=== PATIENT | male | born 1940 | race Caucasian/White ===

== ENCOUNTER 2024-02-20 20:57 | Emergency (ER) | payer MEDICARE, SELFPAY ==
[2024-02-20 21:02] VITALS: BP 152/90
--- NOTE | 2024-02-20 21:31 | ED.SKININJ ---
HPI-Injury
General
Chief Complaint: Ear Problem
Source: patient
Exam Limitations: none
Time Seen by Provider: 02/20/24 21:23
Nursing documentation reviewed up to this point in time: agreed with
Travel History
Have you had any contact with someone who has COVID-19?: No
Do you have any symptoms of coronavirus? Fever > 100 degrees, chills, cough, shortness of breath, sore throat, loss of taste or smell, muscle aches, or headache?: No
History of Present Illness-Injury
Initial Injury comments:
83-year-old male from [place] with no significant past medical history states he woke up this morning and he could not hear anything in both ears. He typically wears hearing aids.
Past History
Past History
ED Past Surgical History: Cholecystectomy
Social History
Tobacco: Non-smoker
Alcohol: None
Personal: Single
Living: assisted living
Employment: Retired
Review of Systems
Review of Systems
Allergies reviewed?: Yes
All Other Systems: ROS reviewed and negative except as documented in HPI and ROS
EENT: Reports other (No ear pain but he cannot hear out of either ear.)
Neurological: Denies headache
Phy Exam
Physical Exam
Physical Exam:
PHYSICAL EXAMINATION:
General: no apparent distress, not acutely ill
Neuro: alert and oriented.
ENT: R ear with white rimmed round FB, L ear with Cerumen impaction
Psychiatric: well kept. interactive and cooperative
Musculoskeletal: Moves with ease
Skin: Warm, pink.
Course
Vital Signs
Initial and Last Documented VS:
Initial Vital Signs
Temp Pulse Resp BP Pulse Ox
97.9 F 60 18 152/90 98
02/20/24 21:02 02/20/24 21:02 02/20/24 21:02 02/20/24 21:02 02/20/24 21:02
Last Documented Vital Signs
Temp Pulse Resp BP Pulse Ox
97.9 F 60 18 152/90 98
02/20/24 21:02 02/20/24 21:02 02/20/24 21:02 02/20/24 21:02 02/20/24 21:02
Procedures
Foreign Body Removal-Ear
Right External canal:
Tenderness: none
Any local drainage: none
Removal of foreign body using: alligator forceps
Exam of canal after removal: no inflammation
MDM/Problems Addressed
Differential Diagnosis Includes:
FB, cerumen impaction
MDM/Problems Addressed:
83-year-old male from [facility] with no significant past medical history states he woke up this morning and he could not hear anything in both ears. He typically wears hearing aids.
Pt had a hearing aid tip stuck in right ear. Left ear with cerumen impaction
After tip removed from right ear, he could hear well with that ear. Canal and TM are normal
He has Debrox he can apply to left ear and he will be referred to ENT
*Critical Care Note
Total Time (30-74mins, 75-104mins- exclusive of procedures): Not Applicable
ED Attending Note
-
Portions of this chart may have been created with voice recognition software.� Occasional wrong word or��sound alike� substitutions may have occurred due to the inherent limitations of voice recognition software.
Discharge Plan
Departure
Patient Disposition: Home (Routine Discharge)
Date of Disposition: 02/20/24
Time of Disposition: 21:40
Patient with high blood pressure during this ER visit?: No
Condition: Good
Discharge Problem:
Acute foreign body of right ear, Impacted cerumen of left ear
Instructions: Ear Wax Impaction (DC), Foreign Body in Ear (DC)
Referrals:
Timothy Varghese MD [Active] - Next open appointment
Activity Restrictions/Additional Instructions:
As we discussed, you had a hearing aid tip embedded in the right ear.
call the ENT doctors office Friday morning and make next available appointment as you have impacted wax in the left ear.
Use your Debrox drops 5 drops in left ear twice a day for the next week.
Interventions
Interventions:
*Risk Screen - Suicide Last Done: 02/20/24 21:02
*General Assessment Last Done: 02/20/24 21:02
*Neglect/Abuse Screening Last Done: 02/20/24 21:02
ED- Fall Risk Assessment Last Done: 02/20/24 21:33
*Nursing Disposition Last Done: 02/20/24 21:56
Discharge Date and Time
Discharge Date/Time: 02/20/24 21:59
Print Language: TELUGU
== END 2024-02-20 21:59 | disposition home or self-care (01) ==
LOC: EMR 20:57
PROVIDERS: EMERGENCY PHYSICIAN Emergency Medicine
DX: H61.22 Impacted cerumen, left ear (principal); T16.1XXA Foreign body in right ear, initial encounter; W44.8XXA Other foreign body entering into or through a natural orifice, initial encounter; Z90.49 Acquired absence of other specified parts of digestive tract
CPT/HCPCS: 99282

== ENCOUNTER 2025-05-10 16:14 | Inpatient (IN) | payer MEDICARE, SELFPAY ==
[2025-05-10] VITALS (8 sets, daily range): BP systolic 120–161; BP diastolic 68–125; BMI 27.5; BMI 27.2
[2025-05-10 12:50] LABS: Hematocrit 47.5 % (39.0-52.0); Hemoglobin 16.1 g/dL (13.0-18.0); Mean Corp Hgb Conc. 33.9 g/dL (33.0-37.0); Mean Corpuscular Volume 90.8 fL (80.0-94.0); Nucleated Red Blood Cells % 0 % (-); Platelet Count 200 10^3/uL (130-400); Red Cell Dist. Width 13.2 % (11.5-14.5)
[2025-05-10 13:16] LABS: AST (SGOT) 131 U/L (17-59); Albumin 4.4 g/dl (3.5-5.0); Alkaline Phosphatase 54 U/L (38-126); Blood Urea Nitrogen 30 mg/dl (9-20); Calcium 9.8 mg/dl (8.4-10.2); Carbon Dioxide 25 mmol/L (22-30); Chloride 103 mmol/L (98-107); Estimated Creatinine Clearance 46 ml/min; Glucose 144 mg/dl (70-99); Potassium 4.5 mmol/L (3.5-5.1); Sodium 137 mmol/L (135-145); Total Protein 7.1 g/dl (6.3-8.2); eGFR 58.89
--- NOTE | 2025-05-10 13:17 | ED.GENMED ---
History of Present Illness
General
Chief Complaint: Weakness
Source: patient and custodial
Exam Limitations: clinical condition
Time Seen by Provider: 05/10/25 12:53
History of Present Illness
History of Present Illness:
85-year-old male apparently found on the floor by staff. He had some abrasions on his chest and his knees. He needed assistance in standing and walking and had difficulty doing this. Complaining of paresthesias diffusely. He does have a history
of polyneuropathy however. Currently only complaining of some increased paresthesias to the left arm. States symptoms started this morning. Unknown time course.
Past History
Past History
ED Past Medical History: Other (Dementia/polyneuropathy)
ED Past Surgical History: Cholecystectomy and Urological
Social History
Tobacco: Non-smoker
Alcohol: None
Personal: Single
Living: assisted living
Employment: Retired
Review of Systems
Review of Systems
All Other Systems: Not applicable
Constitutional: Denies fever or chills
Respiratory: Reports no symptoms
ABD/GI: Reports no symptoms
: Reports no symptoms
Phy Exam
Physical Exam
Physical Exam:
GENERAL: Alert and oriented in no apparent distress. Somewhat cognitively slow and somewhat decreased short-term memory as to what happened today. Normocephalic atraumatic
EYE: Orbits normal.
NECK: Supple, nontender
ENT: Pharynx without erythema
CARDIAC: Regular rate and rhythm without any obvious murmurs.
LUNGS: Clear breath sounds,normal
ABDOMEN: Soft, without focal tenderness or distention
NEUROLOGICAL: Alert and oriented x 3, cranial nerves II through XII intact. Speech normal. No drift. Esgldj-so-jwlo normal. Good lower extremity strength.
SKIN: Warm and dry, abrasions to the upper chest wall and to both knees
MUSCULOSKELETAL: No edema,no deformity.Good color
PSYCH: Normal and appropriate interaction.
Course
Orders/Labs/Results
Orders:
Orders
05/10/25 12:39
Cardiac Monitoring- Treatment ONCE
05/10/25 12:41
CPK [Creatine Phosphokinase] Urgent
Complete Blood Count/With Diff Urgent
Comprehensive Metabolic Panel Urgent
Urinalysis Reflex To Culture Urgent
Date Specimen was Collected: 05/10/25
Time Specimen was Collected: 12:40
Urine Microscopic Reflex Cult Urgent
05/10/25 13:04
CT Head W/o Iv Contrast Urgent
Comment:
Reason For Exam: weak. paresthesias
Cardiac Monitoring- Treatment ONCE
05/10/25 13:05
Electrocardiogram (*1) Stat
Reason for Study: Other
Other Reason for Exam: neuro symptoms
Cardiac Monitoring- Treatment ONCE
EKG- Treatment ONCE
CR Chest - 2 Views Urgent
Comment:
Reason For Exam: weak. wbc
05/10/25 13:06
IV Insert/Care/Rem.- Treatment PRN
0.9% Sodium Chloride 1000 ml [Nss] 1,000 ml IV BOLUS
05/10/25 13:22
US Abdomen Complete/Upper Urgent
Comment:
Reason For Exam: Leukocytosis/elevated LFTs
05/10/25 13:54
COVID-19 Antigen Urgent
Source: Nasal Swab
Blood Culture Q30M
HERBER Source: Blood/Venous
Specimen Description:
Blood Culture Q30M
HERBER Source: Blood/Venous
Specimen Description:
05/10/25 Dinner
Regular
At Your Request: Full Participation
Does patient need a safe tray?: No
05/10/25 15:44
Admit/Transfer Patient As Directed
Co-Sign Provider:
Level of Care: Inpatient admission
Assign to:: Telemetry
Physician / Group: siria rivera
Diagnosis: Fall, acute rhabdomylosis
Reason for Telemetry: Arrhythmia
Date to Stop Telemetry: 05/13/25
Time to Stop Telemetry: 11:00
Reason for Hospitalization: Fall, acute rhabdomylosis
Expected length of stay greater than two midnights?: Yes
ELOS- Estimated Length of Stay in days: 4
I certify the patient meets the requirements for IP care: Yes
Code Status As Directed
Resuscitation Status: Full Code
05/10/25 15:45
0.9% Sodium Chloride 1000 ml [Nss] 1,000 ml IV 100 mls/hr
05/10/25 15:50
PRN Pain Medication Management As Directed
May give lesser potent ordered pain med per pt: Yes
preference::
Protocol:: Medication orders for pain may be administered in a
manner that supports deferring to patient preference
when the pt is:
- Requesting an ordered lesser potent pain medication.
Least to most potent pain medications are defined
as: acetaminophen < NSAID < tramadol < opioids
(morphine, oxycodone, hydromorphone).
- Requesting a lesser dose of the same medication IF
ORDERED.
- Requesting a less intrusive route of administration
if both routes are prescribed by the provider (PO <
IV).
05/10/25 17:09
Bisacodyl [Dulcolax] 10 mg RECTAL [id number] PRN
Docusate W/Senna [Senokot-S] 1 tablet PO BIDPRN PRN
Polyethylene Glycol Powder [Miralax] 17 grams PO DAILYPRN PRN
05/10/25 17:09
Activity As Directed
Activity Level: With Assistance
Intake/ Output As Directed
Frequency: Per unit guidelines
Vital Signs As Directed
Frequency: Per unit guidelines
Ot Eval And Treat Routine
Pt Eval And Treat Routine
Activity Level: As Tolerated
DX Deep Vein Thrombosis Video Routine
05/10/25 18:00
Oxycodone [Roxicodone] 15 mg PO QID
Sertraline HCl [Zoloft] 25 mg PO QPM
05/10/25 20:00
Heparin 5,000 units SC Q12
Lisinopril [Zestril] 10 mg PO BID
05/10/25 22:00
Docusate Sodium [Colace] 100 mg PO Q48H
Metoprolol Xl [Toprol Xl] 25 mg PO HS
05/11/25 06:00
Complete Blood Count/With Diff IN AM
Comprehensive Metabolic Panel IN AM
Creatine Phosphokinase IN AM
Magnesium IN AM
05/11/25 08:00
Aspirin Chewable [Low Strength Aspirin] 81 mg PO DAILY
Bupropion(12Hr)Sustain Release [WELLBUTRIN SR (12 hour sustained release)] 100 mg PO DAILY
Ondansetron Orally Disint [Zofran Odt (Orally Disintegrating)] 4 mg PO DAILY
Pantoprazole [Protonix] 40 mg PO DAILY
Rosuvastatin Calcium [Crestor] 10 mg PO DAILY
05/12/25 06:00
Complete Blood Count/With Diff IN AM
Comprehensive Metabolic Panel IN AM
Creatine Phosphokinase IN AM
05/13/25 06:00
Complete Blood Count/With Diff IN AM
Comprehensive Metabolic Panel IN AM
Creatine Phosphokinase IN AM
05/13/25 11:00
DC Protocol for Telemetry ONCE
05/14/25 06:00
Complete Blood Count/With Diff IN AM
Comprehensive Metabolic Panel IN AM
Creatine Phosphokinase IN AM
Abnormal Lab Results
05/10/25
12:41
WBC 21.5 H 10^3/uL
(4.8-10.8)
Abs Immat Gran (auto) 0.2 H 10^3/uL
(0-0.05)
Absolute Neuts (auto) 19.0 H 10^3/uL
(1.4-6.5)
Absolute Lymphs (auto) 0.9 L 10^3/uL
(1.2-3.4)
Absolute Monos (auto) 1.4 H 10^3/uL
(0.1-0.6)
Immature Gran % 0.9 H %
(0-0.5)
Neutrophils % 88.1 H %
(42.2-75.2)
Lymphocytes % 4.4 L %
(20.5-51.1)
BUN 30 H mg/dl
(9-20)
Glucose 144 H mg/dl
(70-99)
Total Bilirubin 2.6 H mg/dl
(0.2-1.3)
AST 131 H U/L
(17-59)
Creatine Kinase 7001 H U/L
(55-170)
Urine Ketones 1+ A
(Negative)
Ur Occult Blood Reflex 4+ A
(Negative)
Urine RBC 3-6 A /HPF
(0-2)
Urine Bacteria (Reflex) Few A
(Negative)
Urine Albumin (Reflex) 2+ A
(Neg - Trace)
05/10/25 12:41
05/10/25 12:41
Vital Signs
Initial and Last Documented VS:
Initial Vital Signs
BP
152/81
05/10/25 12:01
Last Documented Vital Signs
Temp Pulse Resp BP Pulse Ox
99 F 91 20 161/87 96
05/10/25 17:08 05/10/25 17:08 05/10/25 17:08 05/10/25 17:08 05/10/25 17:08
MDM/Problems Addressed
Differential Diagnosis Includes:
85-year-old male with apparent new neurologic symptoms with unknown time course overnight into this morning. However his NIH stroke scale is essentially 0. He has some mild cognitive issues that sound like they are chronic. However he has general
weakness. Apparently had some gait issues. Has a significant leukocytosis and would have to consider infectious etiology. Workup in progress. Call was placed to the son. Left a message.
*Radiology
Radiology exam reviewed: radiology read reviewed (Shunt in place.) and other (No acute findings on ultrasound)
*Pulse Oximetry
SaO2: 93
Oxygen Mode of Delivery: Room air
Patient hypoxic: no
*Critical Care Note
Total Time (30-74mins, 75-104mins- exclusive of procedures): Not Applicable
ED Attending Note
-
Portions of this chart may have been created with voice recognition software.� Occasional wrong word or��sound alike� substitutions may have occurred due to the inherent limitations of voice recognition software.
Discharge Plan
Departure
Patient Disposition: Admit
Date of Disposition: 05/10/25
Time of Disposition: 14:56
Presentation/result/management discussed w/ accepting MD/DO: Hospitalist
Discharge Problem:
Ataxia, Rhabdomyolysis, Significant leukocytosis
Interventions
Interventions:
*Risk Screen - Suicide Last Done: 05/10/25 12:04
*General Assessment Last Done: 05/10/25 12:04
*Neglect/Abuse Screening Last Done: 05/10/25 12:04
*ED- Fall Risk Assessment Last Done: 05/10/25 17:03
*ED COVID-19 Vaccine History Last Done: 05/10/25 17:03
*Nursing Disposition Last Done: 05/10/25 17:03
ED- Cardiac Assessment Last Done: 05/10/25 12:04
ED- Neurological Assessment Last Done: 05/10/25 12:04
ED- Pulmonary Assessment Last Done: 05/10/25 12:04
Discharge Date and Time
Discharge Date/Time: 05/10/25 17:03
[2025-05-10 13:18] LABS: Urine Character Slightly Cloudy (Clear)
[2025-05-10 13:19] LABS: Urine White Cell 0-2 /HPF (0-5)
[2025-05-10 13:44] LABS: ALT (SGPT) 49 U/L (0-50)
[2025-05-10] MEDS: NSS 1000 IV ×2 (14:08→16:31)
[2025-05-10 15:08] LABS: COVID-19 Antigen Negative (Negative)
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
--- NOTE | 2025-05-10 16:25 | W.PN.UPDATE ---
Update Note
Progress Note Update
Seen and examined and discussed with nurse practitioner in detail I am in agreement with plan and management mentioned by nurse practitioner.
85-year-old male lives in assisted living, with a chronic paresthesia of extremities, dementia and polyneuropathy, he said he was trying to pick pulling machine operator his walker from the floor, he was about to fall but he did not fall he tried to gradually roll
himself to the floor and nuclear some abrasions of the left knee, workup in the ER showed rhabdomyolysis otherwise denied chest pain shortness of breath or fever or chills or any extra weakness or numbness in extremities.
Vital signs reviewed
Physical exam:
General: Awake, alert and oriented x3, not in distress and holds appropriate conversation.
HEENT: No active discharge, ecchymosis or bruising, moist lips, tongue and mucous membrane.
Eyes: No discharge or red conjunctiva, no nystagmus, pupils are reactive and equal
Neck:Supple, no JVD no bruit no goiter.
Respiratory: Normal AP contour and diameter, normal chest wall movement, normal respiratory effort, no respiratory distress,
Lungs: Good air entry bilaterally, no wheezing or rhonchi, no rales or crackles
Heart: S1, S2 regular, normal rate, no added sound.
Gastrointestinal: Positive bowel sounds, soft, nontender, no guarding or rigidity or organomegaly
Musculoskeletal: Abrasion both knees have a Band-Aid on it., no chest wall abnormality or tenderness. All joints and extremities have good range of motion, no muscle tenderness or any joint swelling or tenderness.
Workup including labs, imaging, EKG and archive reviewed.
Assessment and plan:
Acute rhabdomyolysis, CPK around 7000 likely secondary to pain on the ground for some time
IV fluid
Left recheck
PT OT
Dementia:Fall precaution and PT OT
Hypertension: Continue Toprol and lisinopril with close monitoring of vital signs.:
The rest of the assessment and plan as per H&P
All discussed with the patient and the family
Discussed with nurse practitioner
[2025-05-10] MEDS: ROXICODONE 15 MG PO ×2 (17:50→21:48)
[2025-05-10] MEDS: ZOLOFT 25 MG PO (17:50)
[2025-05-10] MEDS: HEPARIN 5000 UNITS SC (19:59)
[2025-05-10] MEDS: ZESTRIL 10 MG PO (20:00)
[2025-05-10] MEDS: TOPROL XL 25 MG PO (21:48)
[2025-05-10] MEDS: COLACE 100 MG PO (21:48)
[2025-05-11] VITALS (9 sets, daily range): BP systolic 92–152; BP diastolic 53–84; PULSE 67–104; O2SAT 94; BMI 27.4
[2025-05-11] MEDS: NSS 1000 IV ×3 (03:07→21:18)
[2025-05-11 07:47] LABS: Hematocrit 45.5 % (39.0-52.0); Hemoglobin 15.1 g/dL (13.0-18.0); Mean Corp Hgb Conc. 33.2 g/dL (33.0-37.0); Mean Corpuscular Volume 92.3 fL (80.0-94.0); Nucleated Red Blood Cells % 0 % (-); Platelet Count 202 10^3/uL (130-400); Red Cell Dist. Width 13.5 % (11.5-14.5)
[2025-05-11 07:55] LABS: Glucose - Point of Care 168 mg/dl (70-99)
[2025-05-11] MEDS: HEPARIN 5000 UNITS SC ×2 (07:55→21:15)
[2025-05-11] MEDS: ZOFRAN ODT (ORALLY DISINTEGRATING) 4 MG PO (07:56)
[2025-05-11] MEDS: PROTONIX 40 MG PO (07:57)
[2025-05-11] MEDS: LOW STRENGTH ASPIRIN 81 MG PO (07:57)
[2025-05-11] MEDS: ZESTRIL PO (07:57)
[2025-05-11] MEDS: CRESTOR 10 MG PO (07:57)
[2025-05-11] MEDS: ROXICODONE 15 MG PO (07:57)
[2025-05-11] MEDS: WELLBUTRIN SR (12 hour sustained release) 100 MG PO (07:57)
[2025-05-11 08:21] LABS: ALT (SGPT) 142 U/L (0-50); AST (SGOT) 583 U/L (17-59); Albumin 3.8 g/dl (3.5-5.0); Alkaline Phosphatase 54 U/L (38-126); Blood Urea Nitrogen 27 mg/dl (9-20); Calcium 8.9 mg/dl (8.4-10.2); Carbon Dioxide 27 mmol/L (22-30); Chloride 106 mmol/L (98-107); Estimated Creatinine Clearance 46 ml/min; Glucose 111 mg/dl (70-99); Magnesium 2.1 mg/dl (1.6-2.3); Potassium 4.3 mmol/L (3.5-5.1); Sodium 134 mmol/L (135-145); Total Protein 6.2 g/dl (6.3-8.2); eGFR 58.89
--- NOTE | 2025-05-11 10:30 | CM ---
database marketing manager reviewed patient's chart and met with patient and patient reports that he resides at [facility]. an assisted living facility, patient reports he has assistance with adl's and uses a rollator with ambulation, disability case manager
reviewed physical therapy notes and recommendation is for skilled placement, options will be reviewed with patient.
PCP: Palmira Mcleod
Pharmacy: [facility]
--- NOTE | 2025-05-11 11:30 | PTCARENOTE ---
During 11am vitals the tech came out to me saying that this pt was wheezing and that they could not get a pulse ox. when going into the room I put him on 5L and also contacted the MD. Fluids were stopped as well as nebulizers started to help with
the wheezing. I also bladder scanned the pt, at which they were >407. I straight cathed the pt for 715. Continuing to monitor the pt closely and monitoring tiger text closely for any updates from the MD.
[2025-05-11] MEDS: DUONEB 3 ML INH (11:47)
--- NOTE | 2025-05-11 12:02 | PTCARENOTE ---
stated over tiger text to please stop the pt's fluids. I did text the MD to have them stopped within our system.
--- NOTE | 2025-05-11 12:11 | W.PN.HOSP.TC ---
Today's Communication/Plan
-
Monitor vital signs see plan
Restart home meds after obtaining accurate med rec
Monitor for any adverse events from previous medications
Check orthostatics
Assessment / Plan
Assessment / Plan
General: Comfortable and Conversant; No Fever or Chills
HEENT: NormoCephalic, Anicteric, Moist mucous membranes
Respiratory: Clear; No Wheezes, Rales or Rhonchi
Cardiac: S1/S2, Regular Rhythm
GI: Soft, Non Tender, Non Distended, Normal Bowel Sounds
Musculoskeletal: N No Edema
Skin: Warm, Dry and Other (Abrasions bilateral knees from rug burn, linear springer to chest from cabinet)
Neuro: Awake, Alert, Oriented
Psych: Calm
Acute rhabdomyolysis 2/2 fall with prolonged floor exposure
CK now > 20,000
Continue with fluids, monitor CK
Transaminitis likely secondary to acute rhabdomyolysis
Continue to monitor
Denies abdominal pain, abdominal ultrasound without any obstructive pathology
Acute hypoxic respiratory failure
Check chest x-ray
Acute urinary retention, straight cath as needed
Trial of DuoNeb
#Abrasions to chest and knees secondary to fall
Mild cognitive impairment
Does not have official dementia diagnosis, confirmed with son
Suspect BPH
Restart finasteride
History of Criselda neuropathy
Restart gabapentin but at lower dose
Constipation
cw laxatives
Insomnia
Continue to hold trazodone for now
DVT prophylaxis
-Subcu heparin
Full code
pt/ot
I spent a total of 54 minutes with the patient or on the floor. More than 50% of this time involved counseling and coordination of care.
Patient's admission med rec was incorrect. Discussed with pharmacy in detail. Patient was not on antihypertensives or pain medications at home. Will need to monitor patient for any adverse effects.
Anticipated Discharge: > 48 hours
Subjective/Interval History
-
Date of Service: May 11, 2025
dizzy
Objective Data
-
Labs:
Laboratory Results
05/11/25
07:26
WBC 13.8 H
Hgb 15.1
Hct 45.5
Plt Count 202
Sodium 134 L
Potassium 4.3
Chloride 106
Carbon Dioxide 27
BUN 27 H
Creatinine 1.2
Glucose 111 H
Calcium 8.9
Total Bilirubin 3.4 H
AST 583 H*
ALT 142 H
Alkaline Phosphatase 54
Vital Signs:
Vital Signs
Temp Pulse Resp BP Pulse Ox
98.6 F 93 18 107/67 94
05/11/25 11:16 05/11/25 11:50 05/11/25 11:50 05/11/25 11:16 05/11/25 11:50
I&O
05/10/25 05/11/25 05/12/25
06:59 06:59 06:59
Intake Total 480 / 480 1680 / 1680
Output Total 550 / 550 715 / 715
Balance -70 / -70 965 / 965
[2025-05-11] MEDS: PROSCAR 5 MG PO (15:30)
[2025-05-11] MEDS: METAMUCIL, KONSYL 1 PACKET PO (15:30)
[2025-05-11] MEDS: NEURONTIN PO (15:31)
[2025-05-11] MEDS: NEURONTIN 300 MG PO (21:16)
[2025-05-11] MEDS: COLACE 100 MG PO (21:16)
[2025-05-12] VITALS (7 sets, daily range): BP systolic 110–134; BP diastolic 52–82; PULSE 74–106
[2025-05-12] MEDS: NSS 1000 IV ×2 (05:10→15:42)
[2025-05-12 08:01] LABS: Hematocrit 42.1 % (39.0-52.0); Hemoglobin 13.7 g/dL (13.0-18.0); Mean Corp Hgb Conc. 32.5 g/dL (33.0-37.0); Mean Corpuscular Volume 94.4 fL (80.0-94.0); Nucleated Red Blood Cells % 0 % (-); Platelet Count 166 10^3/uL (130-400); Red Cell Dist. Width 13.9 % (11.5-14.5)
[2025-05-12] MEDS: NEURONTIN 300 MG PO ×3 (08:04→21:31)
[2025-05-12] MEDS: HEPARIN 5000 UNITS SC ×2 (08:04→20:00)
[2025-05-12] MEDS: VITAMIN B1 100 MG PO (08:04)
[2025-05-12] MEDS: METAMUCIL, KONSYL 1 PACKET PO (08:04)
[2025-05-12] MEDS: COLACE 100 MG PO ×2 (08:04→20:00)
[2025-05-12] MEDS: PROSCAR 5 MG PO (08:04)
[2025-05-12] MEDS: LOW STRENGTH ASPIRIN 81 MG PO (08:04)
[2025-05-12 08:22] LABS: ALT (SGPT) 131 U/L (0-50); AST (SGOT) 328 U/L (17-59); Albumin 3.4 g/dl (3.5-5.0); Alkaline Phosphatase 51 U/L (38-126); Blood Urea Nitrogen 44 mg/dl (9-20); Calcium 8.5 mg/dl (8.4-10.2); Carbon Dioxide 25 mmol/L (22-30); Chloride 107 mmol/L (98-107); Estimated Creatinine Clearance 25 ml/min; Glucose 109 mg/dl (70-99); Potassium 4.7 mmol/L (3.5-5.1); Sodium 134 mmol/L (135-145); Total Protein 5.7 g/dl (6.3-8.2); eGFR 28.46
--- NOTE | 2025-05-12 10:31 | CHAP ---
Received email notification from [employer] that Mr. Logan requested Spiritual Support. I responded and he told me that he had already received the support he requested.
[2025-05-12 12:18] LABS: Urine Character Slightly Cloudy (Clear)
--- NOTE | 2025-05-12 12:22 | W.PN.HOSP.TC ---
Today's Communication/Plan
-
Monitor vitals see plan
Check renal/bladder ultrasound
Monitor renal function
Bladder scan
Continue with fluids
PT/OT
Monitor LFTs
Check UA, urine lites
Assessment / Plan
Assessment / Plan
General: Comfortable and Conversant; No Fever or Chills
HEENT: NormoCephalic, Anicteric, Moist mucous membranes
Respiratory: Clear; No Wheezes, Rales or Rhonchi
Cardiac: S1/S2, Regular Rhythm
GI: Soft, Non Tender, Non Distended, Normal Bowel Sounds
Musculoskeletal:No Edema
Skin: Other (Abrasions bilateral knees from rug burn, linear springer to chest from cabinet)
Neuro: Awake, Alert, Oriented
Psych: Calm
Acute rhabdomyolysis 2/2 fall with prolonged floor exposure
CK slowly improving
Continue with fluids, monitor CK
Transaminitis likely secondary to acute rhabdomyolysis
Continue to monitor
Denies abdominal pain, abdominal ultrasound without any obstructive pathology
Acute hypoxic respiratory failure
Suspect likely was secondary to discomfort from urinary retention, chest x-ray without any pulmonary process
KYLER
Suspect secondary to hypotension and possible urinary retention. Can also be secondary to rhabdomyolysis
Bladder scan as needed
Check renal/bladder ultrasound
Check UA, urine lites
Hyponatremia
Monitor
Acute urinary retention, straight cath as needed
History of BPH
Continue finasteride, straight cath as needed
#Abrasions to chest and knees secondary to fall
Mild cognitive impairment
Does not have official dementia diagnosis, confirmed with son
History of Criselda neuropathy
Restarted gabapentin but at lower dose
Constipation
cw laxatives
Insomnia
Continue to hold trazodone for now
DVT prophylaxis
-Subcu heparin
Full code
pt/ot
Patient's admission med rec was incorrect. Discussed with pharmacy in detail. Patient was not on antihypertensives or pain medications at home. Will need to monitor patient for any adverse effects.
I spent a total of 52 minutes with the patient or on the floor. More than 50% of this time involved counseling and coordination of care.
Anticipated Discharge: > 48 hours
Subjective/Interval History
-
Date of Service: May 12, 2025
denies pain
Objective Data
-
Labs:
Laboratory Results
05/12/25
07:27
WBC 15.9 H
Hgb 13.7
Hct 42.1
Plt Count 166
Sodium 134 L
Potassium 4.7
Chloride 107
Carbon Dioxide 25
BUN 44 H
Creatinine 2.2 H
Glucose 109 H
Calcium 8.5
Total Bilirubin 4.2 H
AST 328 H
ALT 131 H
Alkaline Phosphatase 51
Vital Signs:
Vital Signs
Temp Pulse Resp BP Pulse Ox
98.7 F 80 20 112/58 91
05/12/25 11:17 05/12/25 11:17 05/12/25 11:17 05/12/25 11:17 05/12/25 11:17
I&O
05/11/25 05/12/25 05/13/25
06:59 06:59 06:59
Intake Total 480 / 480 1680 / 1680 480 / 480
Output Total 550 / 550 1115 / 1115 400 / 400
Balance -70 / -70 565 / 565 80 / 80
--- NOTE | 2025-05-12 16:42 | CM ---
Chart reviewed and per updated physical therapy notes the recommendation is for skilled placement, options reviewed with patient and patient is agreeable to [facility], (patient's spouse is at [facility]), binder caser spoke with admissions at [facility]
and faxed a referral to [facility].
Plan; Skilled placement at [facility] when stable.
[2025-05-12] MEDS: DUONEB 3 ML INH (20:12)
[2025-05-13] MEDS: NSS 1000 IV ×2 (02:19→12:44)
[2025-05-13 03:00] VITALS: BP 111/49
[2025-05-13 07:30] VITALS: BP 124/62
[2025-05-13] MEDS: LOW STRENGTH ASPIRIN 81 MG PO (08:36)
[2025-05-13] MEDS: NEURONTIN 300 MG PO ×3 (08:36→21:29)
[2025-05-13] MEDS: PROSCAR 5 MG PO (08:36)
[2025-05-13] MEDS: HEPARIN 5000 UNITS SC ×2 (08:36→21:29)
[2025-05-13] MEDS: METAMUCIL, KONSYL 1 PACKET PO (08:36)
[2025-05-13] MEDS: VITAMIN B1 100 MG PO (08:36)
[2025-05-13 08:37] LABS: Hematocrit 34.2 % (39.0-52.0); Hemoglobin 11.5 g/dL (13.0-18.0); Mean Corp Hgb Conc. 33.6 g/dL (33.0-37.0); Mean Corpuscular Volume 91.9 fL (80.0-94.0); Nucleated Red Blood Cells % 0 % (-); Platelet Count 131 10^3/uL (130-400); Red Cell Dist. Width 13.5 % (11.5-14.5)
[2025-05-13] MEDS: COLACE 100 MG PO ×2 (08:37→21:29)
[2025-05-13] MEDS: DUONEB 3 ML INH ×2 (08:38→21:47)
[2025-05-13 09:03] LABS: ALT (SGPT) 115 U/L (0-50); AST (SGOT) 207 U/L (17-59); Albumin 2.9 g/dl (3.5-5.0); Alkaline Phosphatase 53 U/L (38-126); Blood Urea Nitrogen 34 mg/dl (9-20); Calcium 8.5 mg/dl (8.4-10.2); Carbon Dioxide 23 mmol/L (22-30); Chloride 107 mmol/L (98-107); Estimated Creatinine Clearance 55 ml/min; Glucose 95 mg/dl (70-99); Potassium 4.4 mmol/L (3.5-5.1); Sodium 130 mmol/L (135-145); Total Protein 5.0 g/dl (6.3-8.2); eGFR > 60.00
[2025-05-13 11:35] VITALS: BP 130/68
--- NOTE | 2025-05-13 12:15 | W.PN.HOSP.TC ---
Today's Communication/Plan
-
monitor vitals
see plan
Continue with fluids
Kidney/bladder ultrasound
Monitor CK
PT
Called son, left voicemail
Assessment / Plan
Assessment / Plan
General: Comfortable and Conversant; No Fever or Chills
HEENT: NormoCephalic, Anicteric, Moist mucous membranes
Respiratory: Clear; No Wheezes, Rales or Rhonchi
Cardiac: S1/S2, Regular Rhythm
GI: Soft, Non Tender, Non Distended, Normal Bowel Sounds
Musculoskeletal:No Edema
Skin: Other (Abrasions bilateral knees from rug burn, linear springer to chest from cabinet)
Neuro: Awake, Alert, Oriented
Psych: Calm
Acute rhabdomyolysis 2/2 fall with prolonged floor exposure
CK slowly improving
Continue with fluids, monitor CK
Transaminitis likely secondary to acute rhabdomyolysis
Continue to monitor
Denies abdominal pain, abdominal ultrasound without any obstructive pathology
Acute hypoxic respiratory failure
Suspect likely was secondary to discomfort from urinary retention, chest x-ray without any pulmonary process
resolved
KYLER
Suspect secondary to hypotension and possible urinary retention. Can also be secondary to rhabdomyolysis
Bladder scan as needed
Check renal/bladder ultrasound
ua noted; urine cx pending
Hyponatremia
Monitor
Acute urinary retention, straight cath as needed
History of BPH
Continue finasteride, straight cath as needed
#Abrasions to chest and knees secondary to fall
Mild cognitive impairment
Does not have official dementia diagnosis, confirmed with son
History of Polyneuropathy
Restarted gabapentin but at lower dose
Constipation
cw laxatives
Insomnia
Continue to hold trazodone for now
Suspect some memory impairment
DVT prophylaxis
-Subcu heparin
Full code
pt/ot
Patient's admission med rec was incorrect. Discussed with pharmacy in detail. Patient was not on antihypertensives or pain medications at home. Will need to monitor patient for any adverse effects.
Anticipated Discharge: 24 - 48 hours
Subjective/Interval History
-
Date of Service: May 13, 2025
denies pain
Objective Data
-
Labs:
Laboratory Results
05/13/25
08:01
WBC 9.0
Hgb 11.5 L
Hct 34.2 L
Plt Count 131 D
Sodium 130 L
Potassium 4.4
Chloride 107
Carbon Dioxide 23
BUN 34 H
Creatinine 1.0
Glucose 95
Calcium 8.5
Total Bilirubin 3.2 H
AST 207 H
ALT 115 H
Alkaline Phosphatase 53
Vital Signs:
Vital Signs
Temp Pulse Resp BP Pulse Ox
98.0 F 74 18 130/68 93
05/13/25 11:35 05/13/25 11:35 05/13/25 11:35 05/13/25 11:35 05/13/25 11:35
I&O
05/12/25 05/13/25 05/14/25
06:59 06:59 06:59
Intake Total 1680 / 1680 480 / 480 380 / 380
Output Total 1115 / 1115 970 / 970 700 / 700
Balance 565 / 565 -490 / -490 -320 / -320
[2025-05-13 15:22] VITALS: BP 149/80
[2025-05-13 19:00] VITALS: BP 152/86
[2025-05-13 23:00] VITALS: BP 148/73
[2025-05-14 03:00] VITALS: BP 140/84
[2025-05-14 07:00] VITALS: BP 183/88
[2025-05-14 07:30] LABS: Hematocrit 35.4 % (39.0-52.0); Hemoglobin 12.4 g/dL (13.0-18.0); Mean Corp Hgb Conc. 35.0 g/dL (33.0-37.0); Mean Corpuscular Volume 89.4 fL (80.0-94.0); Nucleated Red Blood Cells % 0 % (-); Platelet Count 158 10^3/uL (130-400); Red Cell Dist. Width 13.0 % (11.5-14.5)
[2025-05-14 07:40] LABS: ALT (SGPT) 114 U/L (0-50); AST (SGOT) 155 U/L (17-59); Albumin 3.2 g/dl (3.5-5.0); Alkaline Phosphatase 64 U/L (38-126); Blood Urea Nitrogen 21 mg/dl (9-20); Calcium 9.1 mg/dl (8.4-10.2); Carbon Dioxide 25 mmol/L (22-30); Chloride 103 mmol/L (98-107); Estimated Creatinine Clearance 68 ml/min; Glucose 99 mg/dl (70-99); Potassium 4.1 mmol/L (3.5-5.1); Sodium 132 mmol/L (135-145); Total Protein 5.6 g/dl (6.3-8.2); eGFR > 60.00
[2025-05-14] MEDS: COLACE 100 MG PO ×2 (08:21→21:44)
[2025-05-14] MEDS: METAMUCIL, KONSYL 1 PACKET PO (08:21)
[2025-05-14] MEDS: VITAMIN B1 100 MG PO (08:21)
[2025-05-14] MEDS: NEURONTIN 300 MG PO ×3 (08:21→21:44)
[2025-05-14] MEDS: PROSCAR 5 MG PO (08:22)
[2025-05-14] MEDS: HEPARIN 5000 UNITS SC ×2 (08:22→21:45)
[2025-05-14] MEDS: LOW STRENGTH ASPIRIN 81 MG PO (08:22)
[2025-05-14 09:40] VITALS: BP 143/93; BP 148/95; BP 150/74; PULSE 80; PULSE 92
[2025-05-14] MEDS: DUONEB 3 ML INH (11:11)
--- NOTE | 2025-05-14 12:19 | W.PN.HOSP.TC ---
Today's Communication/Plan
-
Monitor vital signs see plan
Continue to monitor LFTs
Continue with fluids
PT
Hydralazine as needed
Discharge planning
Assessment / Plan
Assessment / Plan
General: Comfortable and Conversant; No Fever or Chills
HEENT: NormoCephalic, Anicteric, Moist mucous membranes
Respiratory: Clear; No Wheezes, Rales or Rhonchi
Cardiac: S1/S2, Regular Rhythm
GI: Soft, Non Tender, Non Distended, Normal Bowel Sounds
Musculoskeletal:No Edema
Skin: Other (Abrasions bilateral knees from rug burn, linear springer to chest from cabinet)
Neuro: Awake, Alert, Oriented
Psych: Calm
Acute rhabdomyolysis 2/2 fall with prolonged floor exposure
CK slowly improving
Continue with fluids, monitor CK
Transaminitis likely secondary to acute rhabdomyolysis
Continue to monitor; improving
Denies abdominal pain, abdominal ultrasound without any obstructive pathology
Acute hypoxic respiratory failure
Suspect likely was secondary to discomfort from urinary retention, chest x-ray without any pulmonary process
resolved
KYLER
Suspect secondary to hypotension and possible urinary retention. Can also be secondary to rhabdomyolysis
Bladder scan as needed
Check renal/bladder ultrasound without acute abnormality
ua noted; urine cx no growth. no need for abx
Hyponatremia
Monitor
Acute urinary retention, straight cath as needed
History of BPH
Continue finasteride, straight cath as needed
appears to be improving
#Abrasions to chest and knees secondary to fall
Mild cognitive impairment
Does not have official dementia diagnosis, confirmed with son
History of Polyneuropathy
Restarted gabapentin but at lower dose
Constipation
cw laxatives
Insomnia
Continue to hold trazodone for now
Suspect some memory impairment
DVT prophylaxis
-Subcu heparin
Full code
pt/ot rec SNF
Patient's admission med rec was incorrect. Discussed with pharmacy in detail. Patient was not on antihypertensives or pain medications at home. Will need to monitor patient for any adverse effects.
Anticipated Discharge: Within 24 hours
Subjective/Interval History
-
Date of Service: May 14, 2025
denies pain
Objective Data
-
Labs:
Laboratory Results
05/14/25
06:56
WBC 9.7
Hgb 12.4 L
Hct 35.4 L
Plt Count 158 D
Sodium 132 L
Potassium 4.1
Chloride 103
Carbon Dioxide 25
BUN 21 H
Creatinine 0.8
Glucose 99
Calcium 9.1
Total Bilirubin 2.7 H
AST 155 H
ALT 114 H
Alkaline Phosphatase 64
Vital Signs:
Vital Signs
Temp Pulse Resp BP Pulse Ox
98.1 F 80 16 183/88 96
05/14/25 07:00 05/14/25 11:14 05/14/25 11:14 05/14/25 07:00 05/14/25 11:14
I&O
05/13/25 05/14/25 05/15/25
06:59 06:59 06:59
Intake Total 480 / 480 760 / 760
Output Total 970 / 970 1999 / 1999
Balance -490 / -490 -1240 / -1240
[2025-05-14 16:00] VITALS: BP 127/63
[2025-05-14 23:00] VITALS: BP 140/100; BP 143/77; BP 152/85; PULSE 84; PULSE 87; PULSE 90
[2025-05-15 07:00] VITALS: BP 163/88
[2025-05-15 07:13] LABS: Hematocrit 36.2 % (39.0-52.0); Hemoglobin 12.7 g/dL (13.0-18.0); Mean Corp Hgb Conc. 35.1 g/dL (33.0-37.0); Mean Corpuscular Volume 88.5 fL (80.0-94.0); Nucleated Red Blood Cells % 0 % (-); Platelet Count 180 10^3/uL (130-400); Red Cell Dist. Width 13.0 % (11.5-14.5)
[2025-05-15 07:34] LABS: ALT (SGPT) 103 U/L (0-50); AST (SGOT) 92 U/L (17-59); Albumin 3.3 g/dl (3.5-5.0); Alkaline Phosphatase 62 U/L (38-126); Blood Urea Nitrogen 15 mg/dl (9-20); Calcium 9.2 mg/dl (8.4-10.2); Carbon Dioxide 27 mmol/L (22-30); Chloride 103 mmol/L (98-107); Estimated Creatinine Clearance 78 ml/min; Glucose 98 mg/dl (70-99); Potassium 3.8 mmol/L (3.5-5.1); Sodium 133 mmol/L (135-145); Total Protein 5.7 g/dl (6.3-8.2); eGFR > 60.00
[2025-05-15 08:35] VITALS: BP 163/88; BP 164/94; PULSE 83; PULSE 93
[2025-05-15] MEDS: METAMUCIL, KONSYL 1 PACKET PO (08:47)
[2025-05-15] MEDS: VITAMIN B1 100 MG PO (08:48)
[2025-05-15] MEDS: PROSCAR 5 MG PO (08:48)
[2025-05-15] MEDS: NEURONTIN 300 MG PO (08:48)
[2025-05-15] MEDS: LOW STRENGTH ASPIRIN 81 MG PO (08:49)
[2025-05-15] MEDS: HEPARIN 5000 UNITS SC (08:50)
[2025-05-15] MEDS: COLACE 100 MG PO (08:50)
--- NOTE | 2025-05-15 11:40 | W.PN.HOSP.TC ---
Today's Communication/Plan
-
Monitor vital signs see plan
Discharge today to SNF
Monitor LFTs
Time of discharge 38 minutes
Assessment / Plan
Assessment / Plan
General: Comfortable and Conversant; No Fever or Chills
HEENT: NormoCephalic, Anicteric, Moist mucous membranes
Respiratory: Clear; No Wheezes, Rales or Rhonchi
Cardiac: S1/S2, Regular Rhythm
GI: Soft, Non Tender, Non Distended, Normal Bowel Sounds
Musculoskeletal:No Edema
Skin: Other (Abrasions bilateral knees from rug burn, linear springer to chest from cabinet)
Neuro: Awake, Alert, Oriented
Psych: Calm
Acute rhabdomyolysis 2/2 fall with prolonged floor exposure.
Ambulatory dysfunction
Improving
DC further fluids
Transaminitis likely secondary to acute rhabdomyolysis
Continue to monitor; improving
Denies abdominal pain, abdominal ultrasound without any obstructive pathology
Acute hypoxic respiratory failure
Suspect likely was secondary to discomfort from urinary retention, chest x-ray without any pulmonary process
resolved
KYLER
Suspect secondary to hypotension and possible urinary retention. Can also be secondary to rhabdomyolysis
Bladder scan as needed
Check renal/bladder ultrasound without acute abnormality
ua noted; urine cx no growth. no need for abx
Hyponatremia
Monitor
Acute urinary retention, straight cath as needed
History of BPH
Continue finasteride, straight cath as needed
appears to be improving
#Abrasions to chest and knees secondary to fall
Mild cognitive impairment
Does not have official dementia diagnosis, confirmed with son
History of Polyneuropathy
Restarted gabapentin but at lower dose
Constipation
cw laxatives
Insomnia
Resume trazodone
Suspect some memory impairment
DVT prophylaxis
-Subcu heparin
Full code
pt/ot rec SNF
Patient's admission med rec was incorrect. Discussed with pharmacy in detail. Patient was not on antihypertensives or pain medications at home. Will need to monitor patient for any adverse effects.
Anticipated Discharge: Today
Subjective/Interval History
-
Date of Service: May 15, 2025
Denies pain
Objective Data
-
Labs:
Laboratory Results
05/15/25
06:49
WBC 9.7
Hgb 12.7 L
Hct 36.2 L
Plt Count 180
Sodium 133 L
Potassium 3.8
Chloride 103
Carbon Dioxide 27
BUN 15
Creatinine 0.7
Glucose 98
Calcium 9.2
Total Bilirubin 2.2 H
AST 92 H
ALT 103 H
Alkaline Phosphatase 62
Vital Signs:
Vital Signs
Temp Pulse Resp BP Pulse Ox
98.1 F 83 16 163/88 94
05/15/25 07:00 05/15/25 07:00 05/15/25 07:00 05/15/25 07:00 05/15/25 07:00
I&O
05/14/25 05/15/25 05/16/25
06:59 06:59 06:59
Intake Total 760 / 760 800 / 800
Output Total 1999 / 1999 1670 / 1670
Balance -1240 / -1240 -870 / -870
--- NOTE | 2025-05-15 11:44 | W.DCSUMMARY ---
Discharge Summary
Discharge Data
Date of Admission: 05/10/25
Date of Discharge: 05/15/25
-
Pending Results: No
Hospital Course
85-year-old male with past medical history of BPH, mild cognitive impairment, polyneuropathy, insomnia came to the hospital with acute rhabdomyolysis and ambulatory dysfunction. Patient also had transaminitis which was likely thought was secondary
to acute rhabdomyolysis. Abdominal ultrasound was done which did not show any obstructive pathology. Patient was treated with aggressive fluid resuscitation which continue to improve his CK levels and symptoms. He was also followed by physical
therapy who recommended SNF. Once his symptoms continue to improve, he was then discharged to rehab with instructions to follow-up with all his physicians outpatient.
Discharge Plan
-
Patient Disposition: [facility]/SNF
Discharge Diagnosis/Procedures: Acute rhabdomyolysis
Transaminitis
Acute kidney injury
Hyponatremia
Urinary retention
Condition: Fair
Diet: As tolerated
Activity: As tolerated
Driving Restrictions: As prior to admission
Bathing Restrictions: None
Blood Work: CMP next week with primary care provider
Referrals:
Palmira Mcleod DO [Family Provider, General] - in less than 1 week
Prescriptions:
Continued
trazodone 50 mg Tablet
50 mg PO HS
psyllium Packet
1 packet PO DAILY
thiamine HCl (vitamin B1) 100 mg Tablet
100 mg PO DAILY
aspirin 81 mg Tablet,Delayed Release (Dr/Ec)
81 mg PO DAILY
meloxicam 7.5 mg Tablet
7.5 mg PO DAILY
folic acid 1 mg Tablet
1 mg PO DAILY
finasteride 5 mg Tablet
5 mg PO DAILY
alpha lipoic acid 200 mg Capsule
200 mg PO DAILY
Changed
gabapentin 300 mg Capsule
600 mg PO TID Qty: 0 0RF
Discharge Orders:
Discharge Patient (As Directed); Ordered 05/15/25
Ordered By: Speedy Padilla
Discharge Date and Time
Print Language: GREENLANDIC
--- NOTE | 2025-05-15 12:13 | CM ---
Patient has been accepted at [facility], call placed to [facility] in admissions at [facility] and bed is available today, patient will need ambulance transport, no Auth required.
[facility]
Report [phone]
[2025-05-15 15:00] VITALS: BP 155/83
== END 2025-05-15 17:46 | DRG 557 ==
LOC: 4 WEST ACU 16:14
PROVIDERS: Clinical Nurse Specialist Family Health; Student in an Organized Health Care Education/Training Program; ADMITTING PHYSICIAN Internal Medicine; ATTENDING PHYSICIAN Internal Medicine; EMERGENCY PHYSICIAN Emergency Medicine; FAMILY PHYSICIAN Hospitalist
DX: M62.82 Rhabdomyolysis (principal); J96.01 Acute respiratory failure with hypoxia; N17.9 Acute kidney failure, unspecified; E87.1 Hypo-osmolality and hyponatremia; G62.9 Polyneuropathy, unspecified; S20.319A Abrasion of unspecified front wall of thorax, initial encounter; I10 Essential (primary) hypertension; K21.9 Gastro-esophageal reflux disease without esophagitis; D72.829 Elevated white blood cell count, unspecified; R74.01 Elevation of levels of liver transaminase levels; N40.1 Benign prostatic hyperplasia with lower urinary tract symptoms; R33.8 Other retention of urine; G31.84 Mild cognitive impairment of uncertain or unknown etiology; K59.00 Constipation, unspecified; G47.00 Insomnia, unspecified; R26.2 Difficulty in walking, not elsewhere classified; I95.9 Hypotension, unspecified; W19.XXXA Unspecified fall, initial encounter; Y93.9 Activity, unspecified; Y92.099 Unspecified place in other non-institutional residence as the place of occurrence of the external cause; Z60.2 Problems related to living alone; Z79.82 Long term (current) use of aspirin; Z90.49 Acquired absence of other specified parts of digestive tract; Z11.52 Encounter for screening for COVID-19
CPT/HCPCS: 70450; 71045; 71046; 76700; 76770; 80053; 81003; 81015; 82550; 82570; 82962; 83735; 84300; 85025; 87040; 87070; 87086; 87811; 93005; 94640; 96360; 96361; 97163; 97167; 97530; 99285

== ENCOUNTER → 2025-05-16 09:14 | Outpatient (REF) | payer MEDICARE, SELFPAY ==
[2025-05-16 10:30] LABS: Hematocrit 36.3 % (39.0-52.0); Hemoglobin 12.7 g/dL (13.0-18.0); Mean Corp Hgb Conc. 35.0 g/dL (33.0-37.0); Mean Corpuscular Volume 89.6 fL (80.0-94.0); Nucleated Red Blood Cells % 0 % (-); Platelet Count 207 10^3/uL (130-400); Red Cell Dist. Width 13.0 % (11.5-14.5)
[2025-05-16 10:43] LABS: ALT (SGPT) 86 U/L (0-50); AST (SGOT) 61 U/L (17-59); Albumin 3.2 g/dl (3.5-5.0); Alkaline Phosphatase 66 U/L (38-126); Blood Urea Nitrogen 15 mg/dl (9-20); Calcium 8.6 mg/dl (8.4-10.2); Carbon Dioxide 27 mmol/L (22-30); Chloride 102 mmol/L (98-107); Glucose 92 mg/dl (70-99); Potassium 3.3 mmol/L (3.5-5.1); Sodium 135 mmol/L (135-145); Total Protein 5.5 g/dl (6.3-8.2); eGFR > 60.00
== END ==
LOC: OLABP 09:14
PROVIDERS: ATTENDING PHYSICIAN Family Medicine
DX: B20 Human immunodeficiency virus [HIV] disease (principal); I25.10 Atherosclerotic heart disease of native coronary artery without angina pectoris; I70.0 Atherosclerosis of aorta
CPT/HCPCS: 36415; 80053; 85025

== ENCOUNTER → 2025-05-18 10:37 | Outpatient (REF) | payer MEDICARE, SELFPAY ==
[2025-05-18 11:09] LABS: Hematocrit 35.2 % (39.0-52.0); Hemoglobin 12.3 g/dL (13.0-18.0); Mean Corp Hgb Conc. 34.9 g/dL (33.0-37.0); Mean Corpuscular Volume 89.6 fL (80.0-94.0); Nucleated Red Blood Cells % 0 % (-); Platelet Count 213 10^3/uL (130-400); Red Cell Dist. Width 13.0 % (11.5-14.5)
[2025-05-18 11:55] LABS: ALT (SGPT) 60 U/L (0-50); AST (SGOT) 29 U/L (17-59); Albumin 3.2 g/dl (3.5-5.0); Alkaline Phosphatase 60 U/L (38-126); Blood Urea Nitrogen 16 mg/dl (9-20); Calcium 8.6 mg/dl (8.4-10.2); Carbon Dioxide 27 mmol/L (22-30); Chloride 102 mmol/L (98-107); Glucose 95 mg/dl (70-99); Potassium 3.5 mmol/L (3.5-5.1); Sodium 133 mmol/L (135-145); Total Protein 5.6 g/dl (6.3-8.2); eGFR > 60.00
== END ==
LOC: OLABP 10:37
PROVIDERS: ATTENDING PHYSICIAN Family Medicine
DX: B20 Human immunodeficiency virus [HIV] disease (principal); I25.10 Atherosclerotic heart disease of native coronary artery without angina pectoris; I10 Essential (primary) hypertension
CPT/HCPCS: 36415; 80053; 85025

== ENCOUNTER → 2025-05-23 09:53 | Outpatient (REF) | payer OTHER, MEDICARE, SELFPAY ==
[2025-05-23 11:58] LABS: Blood Urea Nitrogen 18 mg/dl (9-20); Calcium 8.6 mg/dl (8.4-10.2); Carbon Dioxide 29 mmol/L (22-30); Chloride 103 mmol/L (98-107); Glucose 91 mg/dl (70-99); Potassium 4.0 mmol/L (3.5-5.1); Sodium 135 mmol/L (135-145); eGFR > 60.00
== END ==
LOC: OLABP 09:53
PROVIDERS: ATTENDING PHYSICIAN Family Medicine
DX: B20 Human immunodeficiency virus [HIV] disease (principal); I10 Essential (primary) hypertension; I25.9 Chronic ischemic heart disease, unspecified
CPT/HCPCS: 36415; 80048

== ENCOUNTER 2025-08-11 11:55 | Emergency (ER) | payer MEDICARE, SELFPAY ==
[2025-08-11 11:57] VITALS: BP 131/77
--- NOTE | 2025-08-11 12:23 | ED.GENMED ---
History of Present Illness
General
Chief Complaint: Male Genito-Urinary Symptoms
Source: patient
Exam Limitations: none
Time Seen by Provider: 08/11/25 12:12
Nursing documentation reviewed up to this point in time: agreed with
History of Present Illness
History of Present Illness:
Patient presents to ED for evaluation after noticing 'couple drops of blood' when he urinated upon waking up this morning. Since then, patient has also voided without seeing any blood. Denies incomplete voiding sensation. Denies abdominal pain.
Denies fever or chills. Denies nausea or vomiting. Denies previous history of similar symptoms. Denies taking any blood thinning medications. Denies trouble with urination recently. Denies recent change in medications or diet.
Past History
Past History
ED Past Medical History: Other (Dementia/polyneuropathy)
ED Past Surgical History: Cholecystectomy and Urological
Social History
Tobacco: Non-smoker
Alcohol: None
Personal: Single
Living: assisted living
Employment: Retired
Review of Systems
Review of Systems
Allergies reviewed?: Yes
All Other Systems: ROS reviewed and negative except as documented in HPI and ROS
Constitutional: Reports no symptoms; Denies fever
ABD/GI: Reports no symptoms; Denies nausea or vomiting
: Reports bleeding; Denies dysuria, frequency, flank pain or difficulty voiding
Musculoskeletal: Reports no symptoms
Skin: Reports no symptoms
Neurological: Reports no symptoms
Phy Exam
Physical Exam
Physical Exam:
Physical Exam
General: no apparent distress, not acutely ill. afebrile
Head: nc/at. eomi
Neck: supple. normal range of motion
Abdomen: normal bowel sounds. not tender. nontender to palpation
Neuro: alert and oriented x 3. no focal neurological deficits
Skin: no rash
Psychiatric: well kept. interactive and cooperative
Extremities: no edema. no calf tenderness.
Course
Orders/Labs/Results
Orders:
Orders
08/11/25 12:21
Bladder Scan- Treatment ONCE
08/11/25 12:45
Basic Metabolic Panel Urgent
Urinalysis Reflex To Culture Urgent
Date Specimen was Collected: 08/11/25
Time Specimen was Collected: 12:01
Urine Microscopic Reflex Cult Urgent
08/11/25 14:06
CR Chest - 2 Views Urgent
Comment:
Reason For Exam: cough
08/11/25 15:44
Albuterol [ProAIR HFA INHALER] 2 puff INH R NOW STA
08/11/25 17:52
Acetaminophen [Tylenol] 650 mg PO NOW STA
08/11/25 17:54
Acetaminophen [Tylenol] 650 mg .ROUTE .STK-MED ONE
Abnormal Lab Results
08/11/25
12:45
Glucose 137 H mg/dl
(70-99)
Urine Ketones 1+ A
(Negative)
Ur Occult Blood Reflex 2+ A
(Negative)
Urine RBC 7-10 A /HPF
(0-2)
Urine Bacteria (Reflex) Few A
(Negative)
Urine Albumin (Reflex) 1+ A
(Neg - Trace)
08/11/25 12:45
Vital Signs
Initial and Last Documented VS:
Initial Vital Signs
Temp Pulse Resp BP Pulse Ox
98.2 F 73 16 131/77 98
08/11/25 11:57 08/11/25 11:57 08/11/25 11:57 08/11/25 11:57 08/11/25 11:57
Last Documented Vital Signs
Temp Pulse Resp BP Pulse Ox
98.2 F 85 18 121/62 95
08/11/25 11:57 08/11/25 17:56 08/11/25 17:56 08/11/25 17:57 08/11/25 18:35
MDM/Problems Addressed
MDM/Problems Addressed:
Patient able to void freely in ED, without significant retention afterwards. In addition, initial presenting drops of blood not seen with urination, per patient. However, urinalysis does reveal microscopic PRBCs, which will need an outpatient
consultation with urology. No evidence infection noted. No indication for antibiotics at this time. Patient also prior to discharge, complaining of cough with wheezing starting today. Chest x-ray does not reveal any acute findings. As such,
patient will be treated symptomatically with albuterol inhaler, with presumed diagnosis of acute bronchitis, with recommendation to continue inhaler upon discharge with PCP follow-up. Return precautions provided to patient, including but not
limited to continue hematuria, inability to urinate, or worsening shortness of breath
*Pulse Oximetry
SaO2: 98
Oxygen Mode of Delivery: Room air
Patient hypoxic: no
*Critical Care Note
Total Time (30-74mins, 75-104mins- exclusive of procedures): Not Applicable
ED Attending Note
-
Portions of this chart may have been created with voice recognition software.� Occasional wrong word or��sound alike� substitutions may have occurred due to the inherent limitations of voice recognition software.
Discharge Plan
Departure
Patient Disposition: Home (Routine Discharge)
Date of Disposition: 08/11/25
Time of Disposition: 15:25
Patient with high blood pressure during this ER visit?: Yes
Condition: Good
Discharge Problem:
Acute bronchitis, Hematuria
Instructions: Bronchitis in adults - ED (DC), Blood in the urine (hematuria) - ED (DC)
Prescriptions:
No Action
trazodone 50 mg Tablet
50 mg PO HS
psyllium Packet
1 packet PO DAILY
thiamine HCl (vitamin B1) 100 mg Tablet
100 mg PO DAILY
aspirin 81 mg Tablet,Delayed Release (Dr/Ec)
81 mg PO DAILY
meloxicam 7.5 mg Tablet
7.5 mg PO DAILY
folic acid 1 mg Tablet
1 mg PO DAILY
finasteride 5 mg Tablet
5 mg PO DAILY
alpha lipoic acid 200 mg Capsule
200 mg PO DAILY
gabapentin 300 mg Capsule
600 mg PO TID Qty: 0 0RF
Referrals:
Palmira Mcleod DO [Family Provider, General]
Franklyn Ivan MD [Active, Urology]
Activity Restrictions/Additional Instructions:
As discussed, please follow-up with your primary care physician and referred urologist for further evaluation and treatment. Please consider return to ED with worsening symptoms, i.e. inability to urinate. In the meantime, you have been provided
with albuterol inhaler, with recommendation to administer 2 puffs every 6 hours x 48 hours, and afterwards, as needed.
Interventions
Interventions:
*Risk Screen - Suicide Last Done: 08/11/25 11:57
*General Assessment Last Done: 08/11/25 12:50
*Neglect/Abuse Screening Last Done: 08/11/25 11:57
*ED- Fall Risk Assessment Last Done: 08/11/25 18:49
*ED COVID-19 Vaccine History Last Done: 08/11/25 12:50
*ED Influenza Vaccine History Last Done: 08/11/25 12:50
*Nursing Disposition Last Done: 08/11/25 18:49
ED-Male Genitourinary Assessment Last Done: 08/11/25 18:04
Discharge Date and Time
Discharge Date/Time: 08/11/25 18:54
Print Language: BELARUSIAN
[2025-08-11 12:49] VITALS: BMI 26.6
[2025-08-11 13:09] LABS: Urine Character Clear (Clear)
[2025-08-11 13:28] LABS: Blood Urea Nitrogen 19 mg/dl (9-20); Calcium 9.1 mg/dl (8.4-10.2); Carbon Dioxide 28 mmol/L (22-30); Chloride 103 mmol/L (98-107); Estimated Creatinine Clearance 61 ml/min; Glucose 137 mg/dl (70-99); Sodium 137 mmol/L (135-145); eGFR > 60.00
[2025-08-11 13:35] LABS: Urine Squamous Cell 0-2 /LPF (Few)
[2025-08-11 13:36] LABS: Urine White Cell 0-2 /HPF (0-5)
[2025-08-11 15:42] VITALS: BP 147/86
[2025-08-11 15:45] VITALS: BP 148/85
[2025-08-11 17:56] VITALS: BP 121/62
[2025-08-11 17:57] VITALS: BP 121/62
[2025-08-11] MEDS: TYLENOL 650 MG PO (17:59)
== END 2025-08-11 18:54 | disposition home or self-care (01) ==
LOC: EMR 11:55
PROVIDERS: Student in an Organized Health Care Education/Training Program; EMERGENCY PHYSICIAN Emergency Medicine; FAMILY PHYSICIAN Hospitalist
DX: J20.9 Acute bronchitis, unspecified (principal); R31.9 Hematuria, unspecified; F03.90 Unspecified dementia, unspecified severity, without behavioral disturbance, psychotic disturbance, mood disturbance, and anxiety; Z90.49 Acquired absence of other specified parts of digestive tract
CPT/HCPCS: 99284; 94640; 71046; 80048; 81003; 81015